=== PATIENT | male | born 1975 | race Caucasian/White ===

== ENCOUNTER 2021-01-13 12:42 | Observation (INO) ==
[2021-01-13] MEDS ORDERED: Aspirin 81 MG TAB.CHEW PO ONE (13:06)
[2021-01-13 13:37] LABS: Basophils # 0.1 K/mcL (0.0-0.2); Basophils % 0.7 %; Eosinophils # 0.3 K/mcL (0.0-0.6); Eosinophils % 2.6 %; Hematocrit 47.8 % (37.5-50.1); Hemoglobin 16.3 g/dL (12.9-16.9); Immature Granulocytes % 0.2 % (0-4); Lymphocytes # 2.7 K/mcL (0.6-4.6); Lymphocytes % 26.2 %; Mean Corpuscular HGB Conc 34.1 g/dL (31.6-35.5); Mean Corpuscular Hemoglobin 31.9 pg (28.0-33.3); Mean Corpuscular Volume 93.5 fL (83.0-100.0); Mean Platelet Volume 10.1 fL (9.4-12.4); Monocytes # 0.3 K/mcL (0.0-1.3); Monocytes % 3.2 %; Neutrophils # 6.9 K/mcL (1.6-8.9); Platelet Count 372 K/mcL (140-400); Red Blood Count 5.11 M/mcL (4.19-5.50); Red Cell Distribution Width 11.5 % (11.5-14.5); Segmented Neutrophils % 67.1 %; White Blood Count 10.2 K/mcL (4.3-11.1)
[2021-01-13 13:56] LABS: BUN/Creatinine Ratio 16 (6-26); Blood Urea Nitrogen 16 mg/dL (6-20); Calcium 9.4 mg/dL (8.6-10.3); Carbon Dioxide 26 mEq/L (23-29); Chloride 103 mEq/L (98-107); Glucose 143 mg/dL (70-105); Osmolality,Calculated 288 (280-300); Potassium 4.3 mEq/L (3.5-5.1); Sodium 137 mEq/L (136-145); Troponin I < 0.03 ng/mL (< 0.04); eGFR For African Americans > 60 (> 60); eGFR For Non-African Americans > 60 (> 60)
[2021-01-13] MEDS ORDERED: Perflutren Lipid Microsphere 1.3 ML in 0.9 % Sodium Chloride 8.7 ML IVP PRN (17:45)
[2021-01-13] MEDS ORDERED: Ondansetron 4 MG/2 ML VIAL IVP PRN (17:47)
[2021-01-13] MEDS ORDERED: Acetaminophen 325 MG TABLET PO PRN (17:47)
[2021-01-13] MEDS ORDERED: Naloxone 0.4 MG/ML INJ IVP PRN (17:47)
[2021-01-13] MEDS ORDERED: Nitroglycerin 0.4 MG TAB.SUBL SL PRN (17:49)
[2021-01-13] MEDS ORDERED: GI Cocktail 40 ML EACH PO ONE (17:53)
[2021-01-13 18:13] LABS: Chol/HDL Ratio 8.3 (0-4.9); Cholesterol 266 mg/dL (< 200); HDL Cholesterol 32 mg/dL (40-59); Magnesium 1.8 mg/dL (1.6-2.6); Triglycerides 430 mg/dL (< 150)
[2021-01-13] MEDS ORDERED: hydrALAZINE 10 MG TABLET PO PRN (18:18)
[2021-01-13 18:26] LABS: Thyroid Stimulating Hormone 1.184 mcIU/mL (0.340-5.600)
[2021-01-13] MEDS: Nicotine 21 MG PATCH.TD24 TD SCH (19:12)
[2021-01-13] MEDS: *HR* Heparin 5,000 UNIT/ML VIAL SQ SCH (20:11)
[2021-01-13] MEDS: Famotidine 20 MG TABLET PO SCH (22:30)
[2021-01-14 00:46] LABS: Hemoglobin 15.7 g/dL (12.9-16.9); Mean Corpuscular HGB Conc 34.1 g/dL (31.6-35.5); Mean Corpuscular Hemoglobin 32.3 pg (28.0-33.3); Mean Corpuscular Volume 94.7 fL (83.0-100.0); Mean Platelet Volume 9.9 fL (9.4-12.4); Platelet Count 292 K/mcL (140-400); Red Blood Count 4.86 M/mcL (4.19-5.50); Red Cell Distribution Width 11.4 % (11.5-14.5); White Blood Count 9.3 K/mcL (4.3-11.1)
[2021-01-14 01:02] LABS: BUN/Creatinine Ratio 22 (6-26); Blood Urea Nitrogen 22 mg/dL (6-20); Calcium 8.6 mg/dL (8.6-10.3); Carbon Dioxide 26 mEq/L (23-29); Chloride 105 mEq/L (98-107); Glucose 110 mg/dL (70-105); Osmolality,Calculated 290 (280-300); Potassium 4.2 mEq/L (3.5-5.1); Sodium 138 mEq/L (136-145); eGFR For African Americans > 60 (> 60); eGFR For Non-African Americans > 60 (> 60)
[2021-01-14 03:51] LABS: Estimated Average Glucose 117 mg/dl; Hemoglobin A1C 5.7 %
[2021-01-14] MEDS: *HR* Heparin 5,000 UNIT/ML VIAL SQ SCH (05:24)
[2021-01-14] MEDS ORDERED: Regadenoson 0.4 MG/5 ML SYRINGE IVP ONE (06:38)
[2021-01-14] MEDS ORDERED: Fenofibrate 54 MG TABLET PO SCH (09:00)
[2021-01-14] MEDS ORDERED: Aspirin Enteric Coated 81 MG Tablet PO SCH (09:00)
[2021-01-14] MEDS ORDERED: PARoxetine 20 MG TABLET PO SCH (09:00)
[2021-01-14] MEDS: Famotidine 20 MG TABLET PO SCH (10:37)
[2021-01-14] MEDS: Nicotine 21 MG PATCH.TD24 TD SCH (10:37)
[2021-01-14 10:47] VITALS: BP 142/91
== END 2021-01-14 13:09 | disposition home or self-care (01) ==
LOC: EMEROOARM 12:42 → 3BNU 12:42 → SUATTDRO 17:14 → 3BNU 18:44
PROVIDERS: ADMIT Family Medicine; ATTEND Internal Medicine